=== PATIENT | male | born 1940 | race Caucasian/White ===

== ENCOUNTER 2018-11-29 05:58 | Day surgery (SDC) | payer MEDICARE, OTHER ==
[2018-11-22 14:24] LABS: BASOPHILS # (AUTO) 0.1 X10'3 (0-0.2); BASOPHILS % (AUTO) 0.9 % (0-1); EOSINOPHILS # (AUTO) 0.2 X10'3 (0-0.9); EOSINOPHILS % (AUTO) 2.9 % (0-6); LYMPHOCYTES # (AUTO) 1.6 X10'3 (1.1-4.8); LYMPHOCYTES % (AUTO) 24.7 % (21-51); MEAN CORPUSCULAR HEMOGLOBIN 29.5 PG (27.0-31.0); MEAN CORPUSCULAR HGB CONC 33.9 g/dL (33.0-36.5); MEAN CORPUSCULAR VOLUME 87.1 FL (78-98); MEAN PLATELET VOLUME 9.5 FL (7.4-10.4); MONOCYTES # (AUTO) 0.5 X10'3 (0-0.9); NEUTROPHILS # (AUTO) 4.2 X10'3 (1.8-7.7); NEUTROPHILS % (AUTO) 63.5 % (42-75); PRE OP HEMATOCRIT 41.4 % (42.0-52.0); PRE OP PLATELET COUNT 235 X10'3 (140-440); RED BLOOD COUNT 4.76 X10'6 (4.70-6.10); RED CELL DISTRIBUTION WIDTH 13.5 % (11.5-14.5)
[2018-11-22 14:35] LABS: ALBUMIN 3.8 G/DL (3.4-5.0); ALKALINE PHOSPHATASE 127 IU/L (46-116); BLOOD UREA NITROGEN 20 MG/DL (7-18); BUN/CREATININE RATIO 16.9 (5.4-32.0); CALCIUM 9.3 MG/DL (8.5-10.1); CHLORIDE 105 MMOL/L (99-107); CREATININE 1.18 MG/DL (0.60-1.10); PRE OP ALT 45 U/L (30-65); PRE OP ANION GAP 7 (8-16); PRE OP AST 24 U/L (10-37); PRE OP BILIRUB, TOTAL 0.3 MG/DL (0.0-1.0); PRE OP GLUCOSE 129 MG/DL (70-104); PRE OP POTASSIUM 3.8 MMOL/L (3.4-5.1); PRE OP SODIUM 139 MMOL/L (135-145); TOTAL CARBON DIOXIDE 26.6 MMOL/L (24-32); TOTAL PROTEIN 7.6 G/DL (6.4-8.2); eGFR 60 ML/MIN
[2018-11-29] VITALS (7 sets, daily range): BP systolic 108–144; BP diastolic 59–92
[~2018-11-29] VITALS: Ht 175.3 cm; Wt 99.0 kg
[~2018-11-29 05:58] MED LIST: AMLO1TAB14 PO; ASPI-1265 PO; SERT50TA PO
[2018-11-29] MEDS ORDERED: cefazolin/dext.iso 2gm/100ml 100 ML IV ONE (06:45)
[2018-11-29] MEDS ORDERED: famotidine 20mg tablet PO ONE (06:45)
[2018-11-29] MEDS ORDERED: ringers solution, lacted 1,000 ML IV SCH ×2 (06:45→08:06)
[2018-11-29] MEDS ORDERED: LIDOcaine 1% 30ml preserv. free vial ONE (07:41)
[2018-11-29] MEDS ORDERED: ondansetron/PF 4mg/2ml inj IV PRN (08:10)
[2018-11-29] MEDS ORDERED: meperidine/PF 25mg/ml syringe IV PRN ×3 (08:10)
[2018-11-29] MEDS ORDERED: proCHLORperazine 10 MG/2 ml inj IV PRN (08:10)
[2018-11-29] MEDS ORDERED: morphine 4 MG/ML inj SYRINge IV PRN ×2 (08:10)
[2018-11-29] MEDS ORDERED: fentaNYL/PF 50MCG/1 ML 2ML syringe ONE (08:21)
[2018-11-29] MEDS ORDERED: midazolam 2 mg/2 ml injection ONE (08:21)
[2018-11-29] MEDS ORDERED: ketorolac trometh. 30mg/ml inj. ONE (08:22)
[2018-11-29] MEDS ORDERED: BUPIVAcaine/PF 2.5mg/ml (0.25%) 10ml vial ONE (08:47)
--- NOTE | 2018-11-29 09:20 | NUR ---
Received from OR via BED, accompanied by Anesthesiologist DR REBOLLEDO and report given by Anesthesiolgist. PATIENT A&OX4, DENIES PAIN, V/S WNL, NEUROVASCULAR CHECKS INTACT, 20G PIV RUE, SCD ON, DRESSING TO LEFT WRIST CDI ELEVATED WITH ICEBAG APPLIED.
--- NOTE | 2018-11-29 10:10 | NUR ---
PATIENT A&OX4, DENIES PAIN, V/S WNL, NEUROVASCULAR CHECKS INTACT, 20G PIV RUE D/C, SCD OFF, DRESSING TO LEFT WRIST CDI ELEVATED WITH ICEBAG APPLIED. I HAVE REVIEWED D/C INSTRUCTIONS WITH PATIENT AND FAMILY AND THEY HAVE VERBALIZED UNDERSTANDING. PATIENT D/C HOME WITH ALL BELONGINGS AND FAMILY GAVE TRANSPORT HOME.
== END 2018-11-29 10:10 | disposition home or self-care (01) ==
LOC: PAS 05:58
PROVIDERS: ATTEND Orthopaedic Surgery Hand Surgery
DX: G56.02 Carpal tunnel syndrome, left upper limb (principal); I25.10 Atherosclerotic heart disease of native coronary artery without angina pectoris; I10 Essential (primary) hypertension; Z79.82 Long term (current) use of aspirin; Z79.899 Other long term (current) drug therapy; Z98.890 Other specified postprocedural states; Z87.891 Personal history of nicotine dependence; Z95.5 Presence of coronary angioplasty implant and graft; E66.9 Obesity, unspecified; Z68.32 Body mass index [BMI] 32.0-32.9, adult
CPT/HCPCS: 36415; 64721; 80053; 82948; 85025; 93005; A6222; J0690; J1885; J2250; J3010; J3490; A6449; J7120

== ENCOUNTER 2024-03-29 21:16 | Emergency (ER) | payer MEDICARE, OTHER ==
[~2024-03-29] VITALS: Ht 175.3 cm; Wt 97.0 kg
[2024-03-29 21:28] VITALS: BP 131/106; PULSE 70; RESP 16; O2SAT 95
[2024-03-29 21:38] VITALS: TEMP 97.8
== END 2024-03-29 21:39 | disposition home or self-care (01) ==
LOC: ER 21:18
DX: T16.2XXA Foreign body in left ear, initial encounter (principal); I21.9 Acute myocardial infarction, unspecified; Z79.899 Other long term (current) drug therapy; W44.G1XA Audio device entering into or through a natural orifice, initial encounter; Y93.89 Activity, other specified; Y92.89 Other specified places as the place of occurrence of the external cause; Y99.8 Other external cause status
CPT/HCPCS: 69200; 99284